=== PATIENT | female | born 1980 | race Caucasian/White ===

== ENCOUNTER → 2024-05-25 07:43 | Outpatient (REF) | payer OTHER, SELFPAY | LOC: HWRAD 07:43 | PROVIDERS: ATTENDING PHYSICIAN Otolaryngology; FAMILY PHYSICIAN Student in an Organized Health Care Education/Training Program | DX: R51.9 Headache, unspecified (principal) | CPT/HCPCS: 70486 ==

== ENCOUNTER → 2024-07-21 15:15 | Outpatient (REF) | payer OTHER, SELFPAY | LOC: CLAB 15:15 | PROVIDERS: ATTENDING PHYSICIAN Otolaryngology | DX: J34.2 Deviated nasal septum (principal); J34.3 Hypertrophy of nasal turbinates | CPT/HCPCS: 88304; 88311 ==

== ENCOUNTER 2025-02-07 07:41 | Day surgery (SDC) | payer OTHER, SELFPAY | END 2025-02-07 12:53 | disposition home or self-care (01) | LOC: GI 07:41 | PROVIDERS: ATTENDING PHYSICIAN Internal Medicine Gastroenterology | DX: Z12.11 Encounter for screening for malignant neoplasm of colon (principal); D12.2 Benign neoplasm of ascending colon; Z83.719 Family history of colon polyps, unspecified | CPT/HCPCS: 45385; 88305 ==